=== PATIENT | female | born 2000 | race Asian ===

== ENCOUNTER 2022-10-17 21:18 | Emergency (ER) | payer SELFPAY ==
[~2022-10-17] VITALS: Ht 160 cm; Wt 65.0 kg
[2022-10-17 21:19] VITALS: TEMP 99.3
[2022-10-17 22:45] VITALS: BP 114/74; PULSE 79; RESP 15
[2022-10-18] MEDS ORDERED: SULF-261 PO (00:22)
[2022-10-18] MEDS ORDERED: CEPH-558 PO (00:22)
[2022-10-18] MEDS ORDERED: SULFAMETHOX/TRIMETH DS 800-160 MG/TABLET PO ONE (00:30)
[2022-10-18] MEDS ORDERED: CEPHALEXIN MONOHYDRATE 500 MG CAPSULE PO ONE (00:30)
== END 2022-10-18 02:19 | disposition home or self-care (01) ==
LOC: EMS 21:21
DX: L03.211 Cellulitis of face (principal); F17.210 Nicotine dependence, cigarettes, uncomplicated
CPT/HCPCS: 99283; Z7502; Z7610